=== PATIENT | female | born 1980 | race Caucasian/White ===

== ENCOUNTER 2020-06-21 22:36 | Emergency (ER) | payer OTHER ==
[~2020-06-21] VITALS: Ht 157.5 cm; Wt 82.2 kg
[2020-06-21 22:46] VITALS: Ht 157.5 cm; Wt 82.2 kg
[2020-06-21 23:25] LABS: BASOPHIL % 0.5 % (0-2); PLATELET COUNT 203 x10^3mcL (130-400)
[2020-06-21 23:34] LABS: CALCIUM 9.3 mg/dL (8.5-10.1); CARBON DIOXIDE 27.6 mmol/L (21-32); CHLORIDE SERUM 105 mmol/L (98-107); CREATININE SERUM 0.9 mg/dL (0.6-1.0); GFR1 > 60 mL/min; GLUCOSE SERUM 106 mg/dL (74-106); POTASSIUM SERUM 3.7 mmol/L (3.5-5.1); SODIUM SERUM 134 mmol/L (136-145)
[2020-06-21 23:40] LABS: ALBUMIN 4.1 g/dL (3.4-5.0); ALKALINE PHOSPHATASE 73 U/L (46-116); ALT/SGPT 32 U/L (14-59); AMYLASE 59 U/L (25-115); AST/SGOT 22 U/L (15-37); BILIRUBIN TOTAL 0.47 mg/dL (0.20-1.00); LIPASE 134 IU/L (73-393); TOTAL PROTEIN, SERUM 7.7 g/dL (6.4-8.2)
[2020-06-22 01:13] VITALS: BP 111/69
== END 2020-06-22 01:12 | disposition home or self-care (01) ==
LOC: ED 22:36
PROVIDERS: Emergency Medicine
DX: M54.41 Lumbago with sciatica, right side (principal)
CPT/HCPCS: J1885; Q0162